=== PATIENT | male | born 1990 | race American Indian/Alaskan Native ===

== ENCOUNTER 2021-12-12 07:36 | Emergency (ER) | payer BC ==
--- NOTE | 2021-12-12 11:23 | Emergency Department Report ---
ED ENT HPI - General Chief complaint: Dental/Oral Stated complaint: TOOTHPAIN Source: patient Mode of arrival: Ambulatory Limitations: No Limitations - History of Present Illness Initial comments: 31-year-old male presents to the ED complaining of toothache headache stuffy nose times last Sunday x10 days. Patient states that he has been taking Claritin [id number] without any relief. States took two amoxicillin and stated that he started to feel better. Patient sure of the dosage. Patient states that he suffer from allergy. Also complained of cough and fever. Denies any shortness of breath ,chest pain.or chills or nausea at present time. Patient is alert and oriented x3. No acute distress noted .No ill appearance noted. MD complaint: tooth pain, ear pain Onset/Timin -: days(s) Severity scale (0 -10): 8 Quality: aching Consistency: intermittent Improves with: none Worsens with: none Associated Symptoms: cough - Related Data Previous Rx's Medication Instructions Recorded Last Taken Type HYDROcodone/APAP 10-325 [[place] 1 each PO Q4-6H PRN #20 tablet 10/08/14 Unknown Rx 10/325] Sulfamethoxazole/Trimethoprim 1 each PO Q12H #20 tablet 10/08/14 Unknown Rx [Bactrim Ds] Amoxicillin/K Clav Tab [Augmentin 1 tab PO Q12HR 10 Days #20 tab 12/12/21 Unknown Rx 875 mg] predniSONE [Deltasone] 50 mg PO QDAY 5 Days #5 tab 12/12/21 Unknown Rx traMADoL [Ultram] 50 mg PO Q6HR PRN 3 Days #12 tablet 12/12/21 Unknown Rx Allergies Allergy/AdvReac Type Severity Reaction Status Date / Time No Known Allergies Allergy Unverified 10/08/14 03:33 ED Dental HPI - General Chief complaint: Dental/Oral Stated complaint: TOOTHPAIN Source: patient Mode of arrival: Ambulatory Limitations: No Limitations - Related Data Previous Rx's Medication Instructions Recorded Last Taken Type HYDROcodone/APAP 10-325 [[place] 1 each PO Q4-6H PRN #20 tablet 10/08/14 Unknown Rx 10/325] Sulfamethoxazole/Trimethoprim 1 each PO Q12H #20 tablet 10/08/14 Unknown Rx [Bactrim Ds] Amoxicillin/K Clav Tab [Augmentin 1 tab PO Q12HR 10 Days #20 tab 12/12/21 Unknown Rx 875 mg] predniSONE [Deltasone] 50 mg PO QDAY 5 Days #5 tab 12/12/21 Unknown Rx traMADoL [Ultram] 50 mg PO Q6HR PRN 3 Days #12 tablet 12/12/21 Unknown Rx Allergies Allergy/AdvReac Type Severity Reaction Status Date / Time No Known Allergies Allergy Unverified 10/08/14 03:33 ED Review of Systems ROS: Stated complaint: TOOTHPAIN Other details as noted in HPI Constitutional: chills. denies: fever Eyes: denies: eye pain, eye discharge, vision change ENT: throat pain. denies: ear pain Respiratory: denies: shortness of breath, wheezing Cardiovascular: denies: chest pain, palpitations Endocrine: no symptoms reported Gastrointestinal: denies: abdominal pain, nausea, diarrhea Genitourinary: denies: urgency, dysuria Musculoskeletal: denies: back pain, joint swelling, arthralgia Skin: denies: rash, lesions Neurological: headache. denies: weakness, paresthesias Psychiatric: denies: anxiety, depression Hematological/Lymphatic: denies: easy bleeding, easy bruising ED Past Medical Hx - Past Medical History Previous Medical History?: No - Surgical History Past Surgical History?: No - Social History Smoking Status: Current Every Day Smoker Substance Use Type: None - Medications Home Medications: Home Medications Medication Instructions Recorded Confirmed Last Taken Type HYDROcodone/APAP 10-325 [[place] 1 each PO Q4-6H PRN #20 tablet 10/08/14 Unknown Rx 10/325] Sulfamethoxazole/Trimethoprim 1 each PO Q12H #20 tablet 10/08/14 Unknown Rx [Bactrim Ds] Amoxicillin/K Clav Tab [Augmentin 1 tab PO Q12HR 10 Days #20 tab 12/12/21 Unknown Rx 875 mg] predniSONE [Deltasone] 50 mg PO QDAY 5 Days #5 tab 12/12/21 Unknown Rx traMADoL [Ultram] 50 mg PO Q6HR PRN 3 Days #12 tablet 12/12/21 Unknown Rx ED Physical Exam - General Limitations: No Limitations General appearance: alert, in no apparent distress - Head Head exam: Present: atraumatic, normocephalic - Eye Eye exam: Present: normal appearance - ENT ENT exam: Present: mucous membranes moist - Expanded ENT Exam Expanded TM/Canal exam: Mastoid Tenderness: Right TM, Left TM (frontal tenderness) Teeth exam: Present: dental caries Throat exam: Positive: other (post nasal ) - Neck Neck exam: Present: normal inspection - Respiratory Respiratory exam: Present: normal lung sounds bilaterally. Absent: respiratory distress - Cardiovascular Cardiovascular Exam: Present: regular rate, normal rhythm. Absent: systolic murmur, diastolic murmur, rubs, gallop - GI/Abdominal GI/Abdominal exam: Present: soft, normal bowel sounds - Rectal Rectal exam: Present: deferred - Extremities Exam Extremities exam: Present: normal inspection - Back Exam Back exam: Present: normal inspection - Neurological Exam Neurological exam: Present: alert, oriented X3 - Psychiatric Psychiatric exam: Present: normal affect, normal mood - Skin Skin exam: Present: warm, dry, intact, normal color. Absent: rash ED Course Vital Signs 12/12/21 09:11 Temperature 98.2 F Pulse Rate 86 Respiratory 16 Rate Blood Pressure 162/94 [Left] O2 Sat by Pulse 99 Oximetry ED Medical Decision Making - Medical Decision Making 31-year-old male presents to the ED complaining of toothache headache stuffy nose times last Sunday x10 days. Patient states that he has been taking Claritin [id number] without any relief. States took two amoxicillin and stated that he started to feel better. Patient sure of the dosage. Patient states that he suffer from allergy. Also complained of cough and fever. Denies any shortness of breath ,chest pain.or chills or nausea at present time. Patient is alert and oriented x3. No acute distress noted .No ill appearance noted. Physical examination patient has a dental cavities. Patient has te nderness noted to the frontal cavities. Post nasal drip noted. Rechecked the patient is resting quietly quietly and comfortable and feeling better. I discussed the results of diagnostic study, my clinical impression and the plan for further treatment with the patient. Patient agrees with plan and discharge at this present time. All question addressed. I have given the patient instruction regarding a diagnosis ,expectation ,follow- up and return precaution. I explained to the patient that emergent condition may arise and to return to the ED for new worsen and any new persisting condition. I have explained the importance of following up with the primary care physician or referral physician listed below has instructed. The patient verbalized understanding of discharge instruction. Critical care attestation.: If time is entered above; I have spent that time in minutes in the direct care of this critically ill patient, excluding procedure time. ED Disposition Clinical Impression: Dental cavity Acute sinusitis Qualifiers: Sinusitis location: frontal Recurrence: non-recurrent Qualified Code(s): J01.10 - Acute frontal sinusitis, unspecified Disposition: 01 HOME / SELF CARE / HOMELESS Is pt being admited?: No Does the pt Need Aspirin: No Condition: Stable Instructions: Sinusitis, Adult, [id number], Preventive Dental Care, Adult Additional Instructions: Medication has prescribed Follow-up with dentist return the ED for any worsening symptom Take over the Claritin Zyrtec-D or Claritin-D Prescriptions: Amoxicillin/K Clav Tab [Augmentin 875 mg] 1 tab PO Q12HR 10 Days #20 tab predniSONE [Deltasone] 50 mg PO QDAY 5 Days #5 tab traMADoL [Ultram] 50 mg PO Q6HR PRN 3 Days #12 tablet PRN Reason: Pain Referrals: [facility] [Provider Group] - 3-5 Days [facility] [Outside] - 3-5 Days Forms: Work/School Release Form(ED) Time of Disposition: 11:32
[2021-12-12 11:46] VITALS: BP 160/90
== END 2021-12-12 11:41 | disposition home or self-care (01) ==
LOC: ED 07:36
DX: K02.9 Dental caries, unspecified (principal); J01.90 Acute sinusitis, unspecified; F17.290 Nicotine dependence, other tobacco product, uncomplicated
CPT/HCPCS: 99282